=== PATIENT | male | born 1980 | race Caucasian/White ===

== ENCOUNTER 2018-06-09 17:26 | Emergency (ER) | payer BC, OTHER ==
[~2018-06-09] VITALS: Ht 167.6 cm; Wt 65.9 kg
[2018-06-09 18:06] VITALS: Ht 167.6 cm; Wt 65.9 kg
--- NOTE | 2018-06-09 20:53 | ERD ---
ER Documentation Chief Complaint Chief Complaint right foot injury at work, cement block fell on him contusion pain 07/20 HPI 37-year-old male presents complaint of right foot pain since yesterday. Patient states that a cement block fell on his foot yesterday at work. Pain is mostly in his first and third toe of right foot. Denies any treatments. States that he is ambulatory. Denies any bleeding. Denies any numbness or tingling. Denies any allergies. Denies any medical problems. Up-to-date on vaccines. ROS All systems reviewed and are negative except as per history of present illness. Medications Home Meds Active Scripts Hydrocodone/Acetaminophen ([place] 5-325 Tablet) 1 Each Tablet, 1 TAB PO Q6H PRN for PAIN, #7 TAB Prov:DEEPTI RUBIN 06/09/18 Ibuprofen* (Motrin*) 600 Mg Tab, 600 MG PO Q6 for pain, #30 TAB Prov:DEEPTI RUBIN 06/09/18 Allergies Allergies: Coded Allergies: No Known Allergy (Unverified , 06/09/18) PMhx/Soc Medical and Surgical Hx: pt denies Medical Hx, pt denies Surgical Hx Hx Alcohol Use: Yes Hx Substance Use: No Hx Tobacco Use: No FmHx Family History: No diabetes, No coronary disease, No other Physical Exam Vitals Vital Signs Date Temp Pulse Resp B/P (MAP) Pulse Ox O2 O2 Flow FiO2 Time Delivery Rate 06/09/18 98.4 70 18 155/85 100 18:06 (108) Physical Exam Const: No acute distress Head: Atraumatic Eyes: Normal Conjunctiva ENT: Normal External Ears, Nose and Mouth. Neck: Full range of motion. No meningismus. Resp: Clear to auscultation bilaterally Cardio: Regular rate and rhythm, no murmurs Abd: Soft, non tender, non distended. Normal bowel sounds Skin: No petechiae or rashes Back: No midline or flank tenderness left foot: Edema and ecchymosis noted over the dorsal aspect of third left toe. There is full range of motion and sensation is intact. Overlying skin is intact. Fifth toe is mildly tender to palpation with full range of motion and no edema or erythema noted. There is no bony deformity noted anywhere on the left foot. All sensation in left foot is intact. All range of motion of the left foot is intact. Neur: Awake and alert Psych: Normal Mood and Affect Results 24 hrs Current Medications Medications Dose Sig/Jose Start Time Status Last (Trade) Ordered Route PRN Stop Time Admin Dose Reason Admin Ibuprofen 600 mg ONCE ONCE 06/09/18 DC 06/09/18 (Motrin) PO 21:00 20:55 06/09/18 21:01 Procedures/MDM DIAGNOSTIC IMAGING REPORT Patient: BRENT FROST : 1980 Age: 37 Sex: M MR #: [id number] DOS: 06/09/182044 Ordering MD: DEEPTI RUBIN Location: [facility] Room/Bed: PROCEDURE: Right foot series CLINICAL INDICATION: Status post trauma TECHNIQUE: Three views. COMPARISON: None FINDINGS: There is a mildly distracted transverse fracture of the third distal phalanx with with 1 mm distraction. No other fractures are visualized. Joint spaces are well maintained. The soft tissues are unremarkable. No erosions are noted. IMPRESSION: Transverse extra-articular fracture of the third distal tuft RPTAT:[facility] Physician Valentin Date Time Electronically viewed and signed by Physician Valentin on 06/09/2018 21:54 RL/ CC: DEEPTI RUBIN [id number] MDM: X-ray showed third distal tuft fracture. Patient was placed in stefan's splint and Ortho boot . splint Assessment: Neurovascularly intact post splint placement with good fit. Patient advised to take ibuprofen for pain and to follow-up with Dr. Mace within 24 hours. I have low suspicion for neurovascular compromise, compartment syndrome, fracture, osteomyelitis, septic joint, or other emergent condition. Patient discharged with strict ER precautions. Patient advised to follow up with PMD. All questions answered at discharge. Departure Diagnosis: Primary Impression: Fracture of third toe, right, closed Encounter type: initial encounter Qualified Codes: S92.501A - Displaced unspecified fracture of right lesser toe(s), initial encounter for closed fracture Condition: Stable DEEPTI RUBIN Jun 09, 2018 20:53
[2018-06-09] MEDS ORDERED: IBUPROFEN 600 MG TAB PO ONE (21:00)
[2018-06-09] MEDS ORDERED: HYDR-4011 PO (22:20)
[2018-06-09] MEDS ORDERED: IBUP-1542 PO (22:20)
[2018-06-09 22:49] VITALS: BP 156/92; PULSE 59; RESP 16
== END 2018-06-09 22:51 | disposition home or self-care (01) ==
LOC: FTE 17:26
DX: S92.501A Displaced unspecified fracture of right lesser toe(s), initial encounter for closed fracture (principal); W20.8XXA Other cause of strike by thrown, projected or falling object, initial encounter; Y92.89 Other specified places as the place of occurrence of the external cause
CPT/HCPCS: 73630; 99283; L3260; Z7610